=== PATIENT | female | born 1950 | race Caucasian/White ===

== ENCOUNTER 2022-03-14 12:48 | Emergency (ER) | payer MEDICARE, OTHER ==
--- NOTE | 2022-03-14 14:05 | ED Physician Documentation ---
PD HPI LOWER EXT INJURY - Stated complaint Stated Complaint: LEG SWELLING - Chief complaint Chief Complaint: Ext Problem - History obtained from History obtained from: Patient (72-year-old woman with history of hypertension and primary lateral sclerosis who occasionally takes a water pill, she does not know which 1. She is visiting here from [place] and her legs become somewhat swollen and now has some weeping cellulitis from the left leg. No fevers. No soa) Review of Systems Constitutional: reports: Reviewed and negative Eyes: reports: Reviewed and negative Throat: reports: Reviewed and negative Cardiac: reports: Reviewed and negative PD PAST MEDICAL HISTORY - Present Medications Home Medications: Ambulatory Orders Medication Instructions Recorded Confirmed Furosemide [Lasix] 20 mg PO DAILY #7 tablet 03/14/22 Potassium Chloride 10 meq PO DAILY #7 cap 03/14/22 cephALEXin [Keflex] 500 mg PO Q6H #28 cap 03/14/22 - Allergies Allergies/Adverse Reactions: Allergies Allergy/AdvReac Type Severity Reaction Status Date / Time iodine Allergy Edema Verified 03/14/22 13:00 PD ED PE NORMAL - Vitals Vital signs reviewed: Yes - General General: Alert and oriented X 3, No acute distress - Derm Derm: Normal color, Warm and dry - Extremities Extremities: Other (1+ pitting pedal edema of both legs with shallow purulent ulcer on the lateral lower left leg that was cultured during exam.) - Neuro Neuro: Alert and oriented X 3, Normal speech Results - Vitals Vitals: Vital Signs - 24 hr 03/14/22 12:56 Temperature 36.7 C Heart Rate 89 Respiratory 20 Rate Blood Pressure 151/69 H O2 Saturation 92 Oxygen O2 Source Room air Departure - Departure Disposition: 01 Home, Self Care Clinical Impression: Cellulitis Qualifiers: Site of cellulitis: extremity Site of cellulitis of extremity: lower extremity Laterality: left Qualified Code(s): L03.116 - Cellulitis of left lower limb Condition: Good Record reviewed to determine appropriate education?: Yes Instructions: ED Infec Skin Cellulitis Prescriptions: cephALEXin [Keflex] 500 mg PO Q6H #28 cap Furosemide [Lasix] 20 mg PO DAILY #7 tablet Potassium Chloride 10 meq PO DAILY #7 cap Comments: You are seen today for pedal edema with left leg cellulitis. I sent a prescri ption for water pills and antibiotics to [facility] in [place]. The water pill lowers your potassium levels, on any day that you take the water pill, take the potassium supplement as well. We are performing a wound culture, the results should be done in 48-72 hours. If antibiotic change is necessary we will call you. Return if worse in the meantime, especially if you develop increased pain, fevers, cannot keep down the medication. Otherwise follow-up with your physician in approximately 2-3 days.
[2022-03-14] MEDS ORDERED: FUROSEMIDE 20 MG TABLET PO STA (14:06)
[2022-03-14] MEDS ORDERED: cephALEXin 250 MG CAPSULE PO STA (14:06)
[2022-03-14] MEDS ORDERED: POTASSIUM CHLORIDE 20 MEQ TABLET PO STA (14:06)
[2022-03-14 14:22] VITALS: BP 140/70
== END 2022-03-14 14:21 | disposition home or self-care (01) ==
LOC: ED 12:48
DX: L03.116 Cellulitis of left lower limb (principal)
CPT/HCPCS: 87070; 87181; 87205; 99282; 99283; A9270